=== PATIENT | female | born 1975 | race Caucasian/White ===

== ENCOUNTER → 2017-05-15 | Outpatient (CLI) | payer OTHER ==
[~2017-05-15] MED LIST: ALB0.5 INH; ARIP2TAB9 PO; ATEN-1 PO; AZIT1PAC21 PO; BUPXL150; BUSP10TA95 PO; CAL1TABL14 PO; CALC500T6 PO; CIT20 PO; CYCL10TA29 PO; DOC100 PO; DOXY-252 PO; DUONEB; ESOM20CA31 PO; FESO8PT GT; FLUT16SP20 NS; HYDR-385 PO; HYDRO25 PO; IBU200 PO; IBU800 PO; IBUP-1618 PO; IBUP600T22 PO; KET10 PO; LEVA1.2527 IH; LISI-374 PO; LOR5/325 PO; METF-410 PO; METH-543 PO; NIT100 PO; ONDA4TAB PO; ONDA4TAB97 PO; OXYC-865 PO; OXYC5TAB38 PO; PANT40TA65 PO; PAR20 PO; PER PO; PRED-1 PO; PRED20TA6 PO; SIMV-42 PO; SOLI10TA8 PO; SPI25 PO; SPIR25TA78 PO; TOP25 PO; TOPI-120 PO; TRAZ-133 PO; TRAZ150T8 PO; [UNRECOGNIZED DRUG - CODE] PO
--- NOTE | 2017-05-15 18:10 | RADIOLOGY IMAGING REPORT ---
FACILITY: [facility] PATIENT NAME: Pushpa Hahn : 1975 MR: [id number] V: [id number] EXAM DATE: ORDERING PHYSICIAN: ARYA HOLLAND TECHNOLOGIST: Location: [facility] - [place] Patient: Pushpa Hahn : 1975 Visit/Account:[id number] Date of Sevice: 05/15/2017 KNEE LEFT W/O CONTRAST COMPARISON: None. HISTORY: Left knee patellofemoral joint DJD, CT scan needed for upcoming patellofemoral joint replac ement. TECHNIQUE: Noncontrast axial CT of the left knee with coronal and sagittal reformats. One of the following dose optimization techniques was utilized in the performance of this exam: auto mated exposure control; adjustment of the mA and/or kV according to patient size; or use of iterative reconstruction technique. Specific details can be referenced in the facility's radiology CT exam op erational policy. CONTRAST: None. FINDINGS: BONES : No acute appearing fractures. Minimal degenerative irregularity of the cortex lining the pat ellar median ridge. Medial patellar facet the relatively convex morphology which is likely developmen kathe, and this causes mild medial patellofemoral joint space narrowing. No other significant arthropat hy. Medial and lateral compartments are unremarkable. No significant bone lesions. FLUID: Trace left knee effusion. No evidence of hemarthrosis or lipohemarthrosis. No appreciable sof t tissue fluid collections. SOFT TISSUES: Unremarkable. No focal muscle atrophy or appreciable muscle edema. OTHER: Negative. IMPRESSION: 1. Mild degenerative irregularity of the patellar median ridge and mild medial patellofemoral joint space narrowing. 2. Trace left knee effusion. Report Dictated By: Max Chavez at 05/15/2017 6:00 PM Report E-Signed By: Max Chavez at 05/15/2017 6:05 PM WSN:[email or web address]
== END ==
LOC: CT 02:39
PROVIDERS: ATTEND Orthopaedic Surgery
DX: M17.12 Unilateral primary osteoarthritis, left knee (principal); M25.462 Effusion, left knee

== ENCOUNTER → 2017-05-28 | Outpatient (REF) | payer OTHER ==
[2017-05-28 17:20] LABS: PLATELET COUNT, AUTOMATED 279 K/uL (150-450)
== END ==
LOC: ZZSENDIN 16:54
PROVIDERS: ATTEND Physician Assistant
DX: Z01.810 Encounter for preprocedural cardiovascular examination (principal); Z01.812 Encounter for preprocedural laboratory examination
CPT/HCPCS: 81001; 85025; 87088

== ENCOUNTER → 2017-06-18 | Outpatient (REF) | payer OTHER | LOC: ZZSENDIN 14:50 | PROVIDERS: ATTEND Physician Assistant | DX: Z01.818 Encounter for other preprocedural examination (principal) | CPT/HCPCS: 81001 ==

== ENCOUNTER 2017-07-08 02:44 | Day surgery (SDC) | payer OTHER ==
[~2017-07-08] VITALS: Ht 162.6 cm; Wt 128.8 kg
[~2017-07-08 02:44] MED LIST changes: -METF-410 PO; +METF-411 PO; +ROSU5TAB8 PO; +SULF-198 PO; +TRAM-420 PO
[2017-07-08 06:15] VITALS: BP 120/73
[2017-07-08] MEDS ORDERED: MIDAZOLAM 2 MG/2 ML VIAL IVP PRN (06:15)
[2017-07-08] MEDS ORDERED: PREGABALIN 150 MG CAPSULE PO ONE (06:15)
[2017-07-08] MEDS ORDERED: TRANEXAMIC AC 1000 MG/10ML SDV 1,000 MG in DEXTROSE 5% 50 ML BAG 50 ML IV ONE (06:15)
[2017-07-08] MEDS ORDERED: APREPITANT 40 MG CAP PO ONE (06:15)
[2017-07-08] MEDS ORDERED: ACETAMINOPHEN 500 MG TAB PO ONE (06:15)
[2017-07-08] MEDS ORDERED: NORMOSOL R SOLN(*) 1000 ML BAG 1,000 ML IV PRN (06:15)
[2017-07-08] MEDS ORDERED: CLINDAMYCIN(*) 900 MG/NS 50 ML 50 ML IVPB ONE (06:15)
[2017-07-08] MEDS ORDERED: LIDOCAINE/SOD BICARB 8.4% SYR ID ONE (06:15)
[2017-07-08] MEDS ORDERED: FAMOTIDINE 20 MG TAB PO ONE (06:15)
[2017-07-08] MEDS ORDERED: cloNIDine EPIDUR INJ 100MCG/ML 40 MCG, ROPIVACAINE 0.5% 20 ML VIAL 25 ML, EPINEPHrine H... INJ ONE (06:15)
[2017-07-08] MEDS ORDERED: CELECOXIB 200 MG CAP PO ONE (06:15)
[2017-07-08] MEDS ORDERED: MIDAZOLAM 2 MG/2 ML VIAL ONE (06:36)
[2017-07-08] MEDS ORDERED: fentaNYL CITR 100 MCG/2 ML AMP ONE (06:36)
[2017-07-08] MEDS ORDERED: DEXAMETHASONE SOD PHOS 10MG/ML ONE (06:38)
[2017-07-08] MEDS ORDERED: LIDOCAINE MPF 1% 5 ML VIAL ONE (06:38)
[2017-07-08] MEDS ORDERED: ONDANSETRON 4 MG/2 ML VIAL ONE (06:38)
[2017-07-08] MEDS ORDERED: ROPIVACAINE 0.2% 20 ML VIAL ONE (06:57)
[2017-07-08] MEDS ORDERED: ROCURONIUM BROM 10 MG/ML 10 ML ONE (07:10)
[2017-07-08] MEDS ORDERED: PHENYLEPHRINE 10 MG/1 ML VIAL ONE (07:54)
[2017-07-08] MEDS ORDERED: LACTATED RINGER 3000 ML BAG IR ONE (08:21)
[2017-07-08] MEDS ORDERED: OXY IR PO (09:29)
[2017-07-08] MEDS ORDERED: KET10 PO (09:30)
[2017-07-08] MEDS ORDERED: SUGAMMADEX SOD 200 MG/2 ML SDV ONE (09:31)
[2017-07-08] MEDS ORDERED: CLIN300C99 PO (09:33)
[2017-07-08] MEDS ORDERED: ACET-2146 PO (09:39)
[2017-07-08] MEDS ORDERED: KETOROLAC 30 MG/ML VIAL ONE (10:03)
[2017-07-08 10:45] VITALS: BP 110/68
--- NOTE | 2017-07-08 10:53 | RADIOLOGY IMAGING REPORT ---
[place] [facility] [place] NAME: Pushpa Hahn : 1975 MR: [id number] V: [id number] EXAM DATE: ORDERING PHYSICIAN: ARYA HOLLAND TECHNOLOGIST: Location: [facility] - [place] Patient: Pushpa Hahn : 1975 Visit/Account:[id number] Date of Sevice: 07/08/2017 EXAMINATION: Left knee radiographs 2 views HISTORY: Status post femoral patellar arthroplasty. COMPARISON: CT left knee from 05/15/2017. FINDINGS: AP and lateral views of the left knee are obtained. Bones: No periprosthetic fracture. Joint spaces: Negative. Hardware: There is a femoral patellar arthroplasty, new from previous exam. Hardware is well-positio pili. Alignment: Normal. Soft tissues: Negative. Effusion: Small amount of fluid and air in the joint following recent surgery. IMPRESSION: Status post left femoral patellar knee arthroplasty without evidence of hardware complication. Report Dictated By: Sara Velazquez MD at 07/08/2017 10:46 AM Report E-Signed By: Sara Velazquez MD at 07/08/2017 10:48 AM WSN:[email or web address]
[2017-07-08] MEDS ORDERED: oxyCODONE HCL 5 MG CAP PO ONE (11:00)
[2017-07-08 11:11] VITALS: BP 101/76
--- NOTE | 2017-07-08 14:04 | OPERATIVE REPORT 1 ---
EVENT DATE: July 08, 2017 SURGEON: Hakan Husain MD ANESTHESIOLOGIST: Neil Zendejas MD ANESTHESIA: Left adductor block followed by general. TEARER: DARBY AriasA, BSN, ALIGNMENT MECHANIC PREOPERATIVE DIAGNOSIS Left knee patellofemoral osteoarthritis, severe. POSTOPERATIVE DIAGNOSIS Left knee patellofemoral osteoarthritis, severe. PROCEDURE PERFORMED Right knee patellofemoral arthroplasty. IMPLANTS KineMatch patellofemoral replacement, custom with an 8 x 30 symmetric patella. We used one package of [employer]Joy cobalt blue antibiotic impregnated cement, and injected 50 mL of our standard Toradol, ropivacaine cocktail at the end of the procedure into the quadriceps mechanism. SPECIMENS None. COMPLICATIONS None. BLOOD LOSS Less than 100 mL. OPERATION Patient received appropriate preoperative antibiotic with clindamycin, was brought to the OR, where Dr. Zendejas performed left adductor block followed by general anesthesia. Left thigh tourniquet was placed, but was not used throughout the procedure. Left lower extremity was prepped and draped in the usual sterile fashion. Midline incision was made, followed by a medial parapatellar arthrotomy. We took care to maintain the meniscal attachments anteriorly. Patella was released of scar tissue, particularly in the lateral gutter, and we let this slide off to the lateral aspect with appropriate retractor. Knee was placed at approximately 45 degrees with a bump. We then utilized the custom guide, and utilizing the preoperative block, we positioned our guide and then marked this. Cartilage was removed with a combination of sharp dissection and curettes. We further refined this until we were satisfied. We then pinned our cutting guide into place and drilled our three peg holes. We then placed the prosthesis, and we noted that we were satisfied with this. This was then placed to back table. Knee was brought up in full extension, and we placed our guide to leave 14 mm of residual patella. We made our cut. We then placed our sizer, sized this to a 30, and placed our peg hole guide inferiorly medially, drilled our peg holes, and this accepted our trial. We then copiously irrigated by pulse lavage while we mixed one package of DonJoy cobalt blue antibiotic impregnated cement. Starting at the patella, we cemented this into place and removed the excess cement. With the knee held at about 45 degrees and the patella held in appropriate position, we then cemented the trochlear prostheses and held this in place. While this was occurring, we injected 50 mL of our standard ropivacaine/Toradol cocktail into the extensor mechanism distally. After 15 minutes, the cement had hardened. All excess cement had been removed. We assessed the patella, and it tracked well in the groove. Again we copiously irrigated, and at 30 degrees we closed the arthrotomy with #2 Vicryl in natbri-dr-vcsuw suture fashion followed by 2-0 Vicryl for subcutaneous tissues. We cleaned the wounds, placed the knee at 45 degrees, applied our ZipLine wound closure system, then we placed compressive dressing. Patient was then extubated, taken to recovery in stable condition. She will be weightbearing as tolerated and knee brace locked out in extension with a walker. She will have a Cryocup. Tylenol 1000 mg q.8 hours scheduled for the first 24-48 hours as prescribed. She has Toradol 10 mg one p.o. q.8 hours #10 for pain, OxyIR 5 mg one to two p.o. q.4 hours p.r.n. for pain and prophylactic clindamycin 300 mg q.8 hours #3. We will see her in two days in clinic to change the dressings. ALEXEI
== END 2017-07-08 10:45 | disposition home or self-care (01) ==
LOC: OR 02:44
PROVIDERS: ATTEND Orthopaedic Surgery
DX: M17.12 Unilateral primary osteoarthritis, left knee (principal); I10 Essential (primary) hypertension; Z79.899 Other long term (current) drug therapy
CPT/HCPCS: 27442; 36415; 73560; 85610; 86850; 86900; 86901; J1100; J1885; J2001; J2250; J2370; J2405; J2795; J3010; J3490; J8501; 97161

== ENCOUNTER → 2017-10-18 | Outpatient (REF) | payer OTHER ==
[~2017-10-18] MED LIST changes: +ACET-2146 PO; +CLIN300C99 PO; +OXY IR PO
== END ==
LOC: ZZSENDIN 16:45
PROVIDERS: ATTEND Physician Assistant
DX: R35.0 Frequency of micturition (principal); R82.99 Other abnormal findings in urine
CPT/HCPCS: 87088

== ENCOUNTER → 2017-12-10 | Outpatient (CLI) | payer OTHER ==
[~2017-12-10] MED LIST changes: -METF-411 PO; +METF-450 PO
--- NOTE | 2017-12-10 16:30 | RADIOLOGY IMAGING REPORT ---
FACILITY: [facility] PATIENT NAME: Pushpa Hahn : 1975 MR: [id number] V: [id number] EXAM DATE: ORDERING PHYSICIAN: LEVAR MORA TECHNOLOGIST: Location: [facility] - [place] Patient: Pushpa Hahn : 1975 Visit/Account:[id number] Date of Sevice: 12/10/2017 KIDNEYS EXAMINATION: Renal ultrasound. History: History of recurrent UTIs COMPARISON STUDIES: FINDINGS: Kidneys: Right kidney- 10.5 x 4.8 x 5.9 cm Left kidney- 11.5 x 6 x 5.1 cm Uniform and symmetric blood flow in each kidney by Doppler ultrasound. Hydronephrosis: none Resistive index on the right 0.57 on the left 0.60 Bladder: Urinary bladder prevoid volume 173 mL and postvoid residual 40 mL. Bilateral ureteral jets are present Abdominal aorta and IVC: Aorta and IVC are patent by Doppler ultrasound. IMPRESSION: Unremarkable renal ultrasound Report Dictated By: Loida Mireles MD at 12/10/2017 4:16 PM Report E-Signed By: Loida Mireles MD at 12/10/2017 4:26 PM WSN:[email or web address]
== END ==
LOC: US 00:09
PROVIDERS: ATTEND Physician Assistant
DX: Z87.440 Personal history of urinary (tract) infections (principal)
CPT/HCPCS: 76705

== ENCOUNTER 2017-12-30 07:41 | Emergency (ER) | payer OTHER ==
[2017-12-30] MEDS ORDERED: METF-450 PO (08:01)
[2017-12-30] MEDS ORDERED: BUPR-472 PO (08:01)
[2017-12-30] MEDS ORDERED: RANI-366 PO (08:01)
--- NOTE | 2017-12-30 08:25 | ER Report ---
History and Physical Time Seen By MD: 08:25 Hx. of Stated Complaint: Pt. having RLQ pain. Seen by PCP and all bloodwork came back normal. Takes Macrobid daily for chronic UTI. Pain 7/10 in RLQ. Afebrile. Nausea present and constipated. HPI/ROS Abdominal pain for 3-4 days. Takes Macrobid chronically for UTI prevention. Pain is not focal, though it is more right-sided than left. The pain waxes and wanes. She is status post hysterectomy, and still has her left ovary. No fever chills. No dysuria. Vaginal discharge. Remainder of the 14 system rev: Yes Allergies: Coded Allergies: Penicillins (Verified Allergy, Severe, HIVES, BREATHING PROBLEMS, 12/30/17) Home Meds Active Scripts Dicyclomine Hcl (DICYCLOMINE HCL) 20 Mg Tablet, 20 MG PO QID for 7 Days, #30 Prov:BAY FONTENOT MD 12/30/17 Reported Medications Ranitidine Hcl (ZANTAC) 150 Mg Tablet, 150 MG PO BID, TAB 12/30/17 Bupropion Hcl (WELLBUTRIN XL) 150 Mg Tab.er.24h, 150 MG PO QDAY, TAB 12/30/17 Metformin Hcl (METFORMIN HCL) 500 Mg Tablet, 1 TAB PO QDAY, TAB 12/30/17 Acetaminophen 500 Mg Tab (ACETAMINOPHEN EXTRA STRENGTH) 500 Mg Tablet, 1000 MG PO Q8H, TAB 07/08/17 Rosuvastatin Calcium (CRESTOR) 5 Mg Tablet, 5 MG PO QDAY 07/01/17 Buspirone Hcl (BUSPIRONE HCL) 10 Mg Tablet, 10 MG PO TID, TAB 07/01/17 Trazodone Hcl (TRAZODONE HCL) 150 Mg Tablet, 150 MG PO QHS 12/29/13 Citalopram Hydrobromide (Celexa) 20 Mg Tab, 40 MG PO QDAY, 0 Refills 10/09/10 Lisinopril (Lisinopril) 40 Mg Tablet, 40 MG PO QDAY, 0 Refills 10/09/10 Reviewed Nurses Notes: Yes Old Medical Records Reviewed: Yes Hx Smoking: No Smoking Status: Never Smoker Exposure to Second Hand Smoke?: No Hx Substance Use Disorder: No Hx Alcohol Use: No Constitutional Physical Exam General Appearance: The patient is alert, has no immediate need for airway protection and no current signs of toxicity. Eyes: Pupils equal and round no injection. Respiratory: Chest is non tender, lungs are clear to auscultation. Cardiac: regular rate and rhythm Gastrointestinal: Abdomen is soft with mild RLQ TTP, no masses, bowel sounds normal. Neck: Neck is supple and non tender. Extremities have full range of motion and are non tender. Skin: No rashes or lesions. DIFFERENTIAL DIAGNOSIS: After history and physical exam differential diagnosis was considered for abdominal pain including but not limited to appendicitis, cholecystitis, gastritis and urinary tract infection. Medical Decision Making Data Points Laboratory Hematology Test 12/30/17 07:48 12/30/17 08:12 Urine Color Yellow Urine Clarity Clear Urine pH 5.0 pH (4.8-9.5) Urine Specific Tensed 1.013 Urine Protein Negative mg/dL (NEGATIVE) Urine Glucose (UA) Negative mg/dL (NEGATIVE) Urine Ketones Negative mg/dL (NEGATIVE) Urine Blood Negative (NEGATIVE) Urine Nitrite Negative (NEGATIVE) Urine Bilirubin Negative (NEGATIVE) Urine Urobilinogen Negative mg/dL (0.2-1.9) Urine Leukocyte Esterase Negative (NEGATIVE) Urine RBC <1 /HPF (0-2/HPF) Urine WBC <1 /HPF (0-5/HPF) Urine Squamous Epithelial Cells Many /LPF (</=FEW) Urine Bacteria Few /HPF (NONE-FEW) Urine Mucus None /HPF (NONE-FEW) Red Blood Count 5.19 M/uL (4.17-5.56) Mean Corpuscular Volume 89.3 fL (80.0-96.0) Mean Corpuscular Hemoglobin 29.8 pg (26.0-33.0) Mean Corpuscular Hemoglobin Concent 33.4 g/dL (32.0-36.0) Red Cell Distribution Width 13.7 % (11.5-14.5) Mean Platelet Volume 8.2 fL (7.2-11.1) Neutrophils (%) (Auto) 61.5 % (39.4-72.5) Lymphocytes (%) (Auto) 27.1 % (17.6-49.6) Monocytes (%) (Auto) 7.5 % (4.1-12.4) Eosinophils (%) (Auto) 3.4 % (0.4-6.7) Basophils (%) (Auto) 0.5 % (0.3-1.4) Nucleated RBC Relative Count (auto) 0.1 /100WBC Neutrophils # (Auto) 4.2 K/uL (2.0-7.4) Lymphocytes # (Auto) 1.9 K/uL (1.3-3.6) Monocytes # (Auto) 0.5 K/uL (0.3-1.0) Eosinophils # (Auto) 0.2 K/uL (0.0-0.5) Basophils # (Auto) 0.0 K/uL (0.0-0.1) Nucleated RBC Absolute Count (auto) 0.01 K/uL Sodium Level 140 mmol/L (137-145) Potassium Level 3.9 mmol/L (3.5-5.0) Chloride Level 109 mmol/L (98-107) Carbon Dioxide Level 23 mmol/L (22-31) Blood Urea Nitrogen 11 mg/dl (7-18) Creatinine 0.80 mg/dl (0.52-1.04) Glomerular Filtration Rate Calc > 60.0 Random Glucose 149 mg/dl (75-110) Calcium Level 9.2 mg/dl (8.4-10.2) Total Bilirubin 0.7 mg/dl (0.2-1.3) Aspartate Amino Transf (AST/SGOT) 21 U/L (0-35) Alanine Aminotransferase (ALT/SGPT) 28 U/L (0-56) Alkaline Phosphatase 103 U/L (0-126) Total Protein 7.2 g/dl (6.3-8.2) Albumin 3.8 g/dl (3.5-5.0) Chemistry Test 12/30/17 07:48 12/30/17 08:12 Urine Color Yellow Urine Clarity Clear Urine pH 5.0 pH (4.8-9.5) Urine Specific Tensed 1.013 Urine Protein Negative mg/dL (NEGATIVE) Urine Glucose (UA) Negative mg/dL (NEGATIVE) Urine Ketones Negative mg/dL (NEGATIVE) Urine Blood Negative (NEGATIVE) Urine Nitrite Negative (NEGATIVE) Urine Bilirubin Negative (NEGATIVE) Urine Urobilinogen Negative mg/dL (0.2-1.9) Urine Leukocyte Esterase Negative (NEGATIVE) Urine RBC <1 /HPF (0-2/HPF) Urine WBC <1 /HPF (0-5/HPF) Urine Squamous Epithelial Cells Many /LPF (</=FEW) Urine Bacteria Few /HPF (NONE-FEW) Urine Mucus None /HPF (NONE-FEW) White Blood Count 6.9 k/uL (4.5-11.0) Red Blood Count 5.19 M/uL (4.17-5.56) Hemoglobin 15.5 g/dL (12.0-16.0) Hematocrit 46.3 % (34.0-47.0) Mean Corpuscular Volume 89.3 fL (80.0-96.0) Mean Corpuscular Hemoglobin 29.8 pg (26.0-33.0) Mean Corpuscular Hemoglobin Concent 33.4 g/dL (32.0-36.0) Red Cell Distribution Width 13.7 % (11.5-14.5) Platelet Count 266 K/uL (150-450) Mean Platelet Volume 8.2 fL (7.2-11.1) Neutrophils (%) (Auto) 61.5 % (39.4-72.5) Lymphocytes (%) (Auto) 27.1 % (17.6-49.6) Monocytes (%) (Auto) 7.5 % (4.1-12.4) Eosinophils (%) (Auto) 3.4 % (0.4-6.7) Basophils (%) (Auto) 0.5 % (0.3-1.4) Nucleated RBC Relative Count (auto) 0.1 /100WBC Neutrophils # (Auto) 4.2 K/uL (2.0-7.4) Lymphocytes # (Auto) 1.9 K/uL (1.3-3.6) Monocytes # (Auto) 0.5 K/uL (0.3-1.0) Eosinophils # (Auto) 0.2 K/uL (0.0-0.5) Basophils # (Auto) 0.0 K/uL (0.0-0.1) Nucleated RBC Absolute Count (auto) 0.01 K/uL Glomerular Filtration Rate Calc > 60.0 Calcium Level 9.2 mg/dl (8.4-10.2) Total Bilirubin 0.7 mg/dl (0.2-1.3) Aspartate Amino Transf (AST/SGOT) 21 U/L (0-35) Alanine Aminotransferase (ALT/SGPT) 28 U/L (0-56) Alkaline Phosphatase 103 U/L (0-126) Total Protein 7.2 g/dl (6.3-8.2) Albumin 3.8 g/dl (3.5-5.0) Urinalysis Test 12/30/17 07:48 Urine Color Yellow Urine Clarity Clear Urine pH 5.0 pH (4.8-9.5) Urine Specific Tensed 1.013 Urine Protein Negative mg/dL (NEGATIVE) Urine Glucose (UA) Negative mg/dL (NEGATIVE) Urine Ketones Negative mg/dL (NEGATIVE) Urine Blood Negative (NEGATIVE) Urine Nitrite Negative (NEGATIVE) Urine Bilirubin Negative (NEGATIVE) Urine Urobilinogen Negative mg/dL (0.2-1.9) Urine Leukocyte Esterase Negative (NEGATIVE) Urine RBC <1 /HPF (0-2/HPF) Urine WBC <1 /HPF (0-5/HPF) Urine Squamous Epithelial Cells Many /LPF (</=FEW) Urine Bacteria Few /HPF (NONE-FEW) Urine Mucus None /HPF (NONE-FEW) ED Course/Re-evaluation ED Course Pain improved. No evidence of appendicitis. Consider ovarian torsion, but improved on right side has been removed. No vaginal discharge or vaginal bleeding. No further workup needed at this time. She will follow-up with her primary care physician. Decision to Disposition Date: Dec 30, 2017 Decision to Disposition Time: 13:30 Depart Departure Latest Vital Signs Impression: Primary Impression: Abdominal pain Condition: Improved Disposition: HOME OR SELF-CARE Referrals: LEVAR MORA PA-C (PCP) New Scripts Dicyclomine Hcl (DICYCLOMINE HCL) 20 Mg Tablet 20 MG PO QID for 7 Days, #30 Prov: BAY FONTENOT MD 12/30/17 Patient Instructions: Abdominal Pain (ED) Problem Qualifiers Primary Impression: Abdominal pain Abdominal location: right lower quadrant Qualified Codes: R10.31 - Right lower quadrant pain BAY FONTENOT MD Dec 30, 2017 08:25
[2017-12-30] MEDS ORDERED: ONDANSETRON 4 MG/2 ML VIAL IVP ONE (08:40)
[2017-12-30] MEDS ORDERED: NS(*) 0.9% 1000 ML BAG 1,000 ML IV ONE (08:40)
[2017-12-30 08:52] LABS: PLATELET COUNT, AUTOMATED 266 K/uL (150-450)
[2017-12-30] MEDS ORDERED: IOPAMIDOL 76% 75 ML INFUS BTL 75 ML ONE (08:57)
--- NOTE | 2017-12-30 09:52 | RADIOLOGY IMAGING REPORT ---
FACILITY: [facility] - [place] PATIENT NAME: Pushpa Hahn : 1975 MR: [id number] V: [id number] EXAM DATE: ORDERING PHYSICIAN: BAY FONTENOT TECHNOLOGIST: Location: [facility] Patient: Pushpa Hahn : 1975 Visit/Account:[id number] Date of Sevice: 12/30/2017 EXAMINATION: Abdomen and pelvis CT with contrast HISTORY: Right lower quadrant pain TECHNIQUE: CT was performed through the abdomen and pelvis following injection of iodinated intrave nous contrast. Sagittal and coronal MPR reformatted images were generated. 75 mL isovue 370 injecte d. One of the following dose optimization techniques was utilized in the performance of this exam: autom ated exposure control; adjustment of the mA and/or kV according to patient size; or use of iterative reconstruction technique. Specific details can be referenced in the facility's radiology CT exam ope rational policy. COMPARISON: MRCP 01/13/2014, chest CT May 09, 2016 FINDINGS: Lower chest: Left lower lobe 4 mm likely benign/postinflammatory pulmonary nodule is unchanged compar ing coronal reformations, coronal images 82 and 83. Spleen: Normal. Adrenal glands: Normal. Pancreas: Normal. Kidneys: Normal. Gallbladder: Surgically absent. Liver: Unchanged mild hepatic steatosis. Vessels: Normal. Lymph node assessment: A few likely reactive borderline enlarged portal region lymph nodes have incre ased in size. Bowel including small bowel, colon and appendix: Normal stomach, normal small bowel, and normal appen jose. A few colonic diverticuli without diverticulitis. Otherwise unremarkable colon. Peritoneum / retroperitoneum / mesentery: Normal. Pelvic structures: Normal bladder, absent uterus and normal rectum. No pelvic fluid or adenopathy . Body wall: Normal. Musculoskeletal: No fracture or osseous destruction. IMPRESSION: 1. No acute finding. 2. Normal appendix. 3. Unchanged hepatic steatosis. 4. A few colonic diverticula without diverticulitis. 5. Surgically absent gallbladder and uterus. Report Dictated By: Everett Vela MD at 12/30/2017 9:37 AM Report E-Signed By: Everett Vela MD at 12/30/2017 9:49 AM WSN:[email or web address]
[2017-12-30] MEDS ORDERED: KETOROLAC 30 MG/ML VIAL IVP ONE (10:00)
[2017-12-30 13:30] VITALS: BP 127/85
[2017-12-30] MEDS ORDERED: DICY20TA70 PO (13:33)
== END 2017-12-30 14:01 | disposition home or self-care (01) ==
LOC: ER 08:30
DX: R10.31 Right lower quadrant pain (principal)
CPT/HCPCS: 74177; 81001; 85025; 96361; 96374; 96375; 99284; J1885; J2405; J7030; Q9967; 82040; 82247; 82310; 82374; 82435; 82565; 82947; 84075; 84132; 84155; 84295; 84450; 84460; 84520

== ENCOUNTER 2018-05-14 20:09 | Emergency (ER) | payer OTHER ==
[~2018-05-14 20:09] MED LIST changes: +BUPR-472 PO; +DICY20TA70 PO; +RANI-366 PO
--- NOTE | 2018-05-14 20:11 | ER Report ---
History and Physical Time Seen By MD: 20:10 HPI/ROS CHIEF COMPLAINT: Right hip pain HISTORY OF PRESENT ILLNESS: 42-year-old female with extensive past medical history she has an implanted bladder stimulator from several months ago. She has chronic UTIs and bladder problems. On Macrobid chronically. She now over the last 2 days developed severe right hip and groin pain. He is unable to move her leg without severe pain. She feels febrile, but her temperature returns at 98.5. She notes no nausea or vomiting. She notes no diarrhea or dysuria. Patient notes the pain wraps around her right posterior pelvic area where the implant was inserted. The incision appears intact without erythema, warmth or induration. REVIEW OF SYSTEMS: Respiratory: No cough, no dyspnea. Cardiovascular: No chest pain, no palpitations. Gastrointestinal: No vomiting, no abdominal pain. Musculoskeletal: As above Allergies: Coded Allergies: Penicillins (Verified Allergy, Severe, HIVES, BREATHING PROBLEMS, 05/14/18) Home Meds Active Scripts Prednisone (PREDNISONE) 20 Mg Tablet, 20 MG PO QDAY for reduce inflammation, #7 Prov:PUMA MURILLO DO 05/14/18 Hydrocodone Bit/Acetaminophen (HYDROCODON-ACETAMINOPHEN 5-325) 1 Each Tablet, 1 EACH PO Q4-6H PRN for PAIN, #12 TAKE ONE TABLET BY MOUTH EVERY 4-6 HOURS NEEDED FOR PAIN Prov:PUMA MURILLO DO 05/14/18 Reported Medications Ranitidine Hcl (ZANTAC) 150 Mg Tablet, 150 MG PO BID, TAB 12/30/17 Bupropion Hcl (WELLBUTRIN XL) 150 Mg Tab.er.24h, 150 MG PO QDAY, TAB 12/30/17 Acetaminophen 500 Mg Tab (ACETAMINOPHEN EXTRA STRENGTH) 500 Mg Tablet, 1000 MG PO Q8H, TAB 07/08/17 Rosuvastatin Calcium (CRESTOR) 5 Mg Tablet, 5 MG PO QDAY 07/01/17 Buspirone Hcl (BUSPIRONE HCL) 10 Mg Tablet, 10 MG PO TID, TAB 07/01/17 Trazodone Hcl (TRAZODONE HCL) 150 Mg Tablet, 150 MG PO QHS 12/29/13 Citalopram Hydrobromide (Celexa) 20 Mg Tab, 40 MG PO QDAY, 0 Refills 10/09/10 Lisinopril (Lisinopril) 40 Mg Tablet, 40 MG PO QDAY, 0 Refills 10/09/10 Discontinued Reported Medications Metformin Hcl (METFORMIN HCL) 500 Mg Tablet, 1 TAB PO QDAY, TAB 12/30/17 Discontinued Scripts Dicyclomine Hcl (DICYCLOMINE HCL) 20 Mg Tablet, 20 MG PO QID for 7 Days, #30 Prov:BAY FONTENOT MD 12/30/17 Past Medical/Surgical History Past medical history: Wears contact lenses, stress-induced headaches, hypertension, diet controlled hypercholesterolemia, hypertension, environmental and exercise-induced asthma, dysmenorrhea, metromenorrhagia, stress incontinence resistant UTI. Past surgical history tubal ligation 2004, total hysterectomy 2010 right wrist surgery Hx Smoking: No Smoking Status: Never Smoker Exposure to Second Hand Smoke?: No Hx Substance Use Disorder: No Hx Alcohol Use: No Constitutional Vital Sign - Last 24 Hours 05/14/18 05/14/18 05/14/18 05/14/18 20:12 20:14 21:09 21:36 Temp 98.5 Pulse 107 92 Resp 17 B/P (MAP) 152/80 152/80 (104) 115/67 (83) Pulse Ox 90 92 O2 Delivery Room Air 05/14/18 05/14/18 05/14/18 21:44 22:00 22:14 Pulse 86 91 B/P (MAP) 116/51 (72) Pulse Ox 93 92 Intake and Output 05/14/18 05/14/18 05/15/18 15:00 23:00 07:00 Intake Total 1000 ml Balance 1000 ml Physical Exam General Appearance: The patient is alert, has no immediate need for airway protection and no current signs of toxicity. Vital signs stable, afebrile, pulse ox normal, moderate distress HEENT: Pupils equal and round no injection. TMs normal, oropharynx without redness or exudate Respiratory: Chest is non tender, lungs are clear to auscultation. Cardiac: regular rate and rhythm Gastrointestinal: Abdomen is soft and non tender, no masses, bowel sounds normal. Musculoskeletal: Neck: Neck is supple and non tender. Extremities have full range of motion and are non tender. Skin: No rashes or lesions. DIFFERENTIAL DIAGNOSIS: After history and physical exam differential diagnosis was considered for arthritis, septic joint, labral tear, groin pain,abdominal pain including but not limited to appendicitis, cholecystitis, gastritis and uri nary tract infection. Medical Decision Making Data Points Result Diagram: 05/14/18202905/14/182029 Laboratory Hematology Test 05/14/18 20:30 Red Blood Count 5.21 M/uL (4.17-5.56) Mean Corpuscular Volume 88.5 fL (80.0-96.0) Mean Corpuscular Hemoglobin 29.7 pg (26.0-33.0) Mean Corpuscular Hemoglobin Concent 33.6 g/dL (32.0-36.0) Red Cell Distribution Width 13.7 % (11.5-14.5) Mean Platelet Volume 8.6 fL (7.2-11.1) Neutrophils (%) (Auto) 71.6 % (39.4-72.5) Lymphocytes (%) (Auto) 19.7 % (17.6-49.6) Monocytes (%) (Auto) 6.6 % (4.1-12.4) Eosinophils (%) (Auto) 1.7 % (0.4-6.7) Basophils (%) (Auto) 0.4 % (0.3-1.4) Nucleated RBC Relative Count (auto) 0.0 /100WBC Neutrophils # (Auto) 8.6 K/uL (2.0-7.4) Lymphocytes # (Auto) 2.4 K/uL (1.3-3.6) Monocytes # (Auto) 0.8 K/uL (0.3-1.0) Eosinophils # (Auto) 0.2 K/uL (0.0-0.5) Basophils # (Auto) 0.1 K/uL (0.0-0.1) Nucleated RBC Absolute Count (auto) 0.01 K/uL Urine Color Yellow Urine Clarity Clear Urine pH 5.0 pH (4.8-9.5) Urine Specific [place] 1.016 Urine Protein Negative mg/dL (NEGATIVE) Urine Glucose (UA) Negative mg/dL (NEGATIVE) Urine Ketones Negative mg/dL (NEGATIVE) Urine Blood Negative (NEGATIVE) Urine Nitrite Negative (NEGATIVE) Urine Bilirubin Negative (NEGATIVE) Urine Urobilinogen Negative mg/dL (0.2-1.9) Urine Leukocyte Esterase Negative (NEGATIVE) Urine RBC <1 /HPF (0-2/HPF) Urine WBC 2 /HPF (0-5/HPF) Urine Squamous Epithelial Cells Many /LPF (</=FEW) Urine Bacteria Few /HPF (NONE-FEW) Urine Mucus None /HPF (NONE-FEW) Urine HCG, Qualitative Negative (NEGATIVE) Sodium Level 139 mmol/L (137-145) Potassium Level 3.9 mmol/L (3.5-5.0) Chloride Level 103 mmol/L (98-107) Carbon Dioxide Level 23 mmol/L (22-31) Blood Urea Nitrogen 11 mg/dl (7-18) Creatinine 0.90 mg/dl (0.52-1.04) Glomerular Filtration Rate Calc > 60.0 Random Glucose 183 mg/dl (75-110) Calcium Level 9.2 mg/dl (8.4-10.2) Total Bilirubin 0.6 mg/dl (0.2-1.3) Aspartate Amino Transf (AST/SGOT) 24 U/L (0-35) Alanine Aminotransferase (ALT/SGPT) 37 U/L (0-56) Alkaline Phosphatase 106 U/L (0-126) C-Reactive Protein 0.5 mg/dl (<1.0) Total Protein 7.4 g/dl (6.3-8.2) Albumin 4.2 g/dl (3.5-5.0) Amylase Level 72 U/L (0-110) Lipase 140 U/L (23-300) Chemistry Test 05/14/18 20:30 White Blood Count 12.0 k/uL (4.5-11.0) Red Blood Count 5.21 M/uL (4.17-5.56) Hemoglobin 15.5 g/dL (12.0-16.0) Hematocrit 46.1 % (34.0-47.0) Mean Corpuscular Volume 88.5 fL (80.0-96.0) Mean Corpuscular Hemoglobin 29.7 pg (26.0-33.0) Mean Corpuscular Hemoglobin Concent 33.6 g/dL (32.0-36.0) Red Cell Distribution Width 13.7 % (11.5-14.5) Platelet Count 315 K/uL (150-450) Mean Platelet Volume 8.6 fL (7.2-11.1) Neutrophils (%) (Auto) 71.6 % (39.4-72.5) Lymphocytes (%) (Auto) 19.7 % (17.6-49.6) Monocytes (%) (Auto) 6.6 % (4.1-12.4) Eosinophils (%) (Auto) 1.7 % (0.4-6.7) Basophils (%) (Auto) 0.4 % (0.3-1.4) Nucleated RBC Relative Count (auto) 0.0 /100WBC Neutrophils # (Auto) 8.6 K/uL (2.0-7.4) Lymphocytes # (Auto) 2.4 K/uL (1.3-3.6) Monocytes # (Auto) 0.8 K/uL (0.3-1.0) Eosinophils # (Auto) 0.2 K/uL (0.0-0.5) Basophils # (Auto) 0.1 K/uL (0.0-0.1) Nucleated RBC Absolute Count (auto) 0.01 K/uL Urine Color Yellow Urine Clarity Clear Urine pH 5.0 pH (4.8-9.5) Urine Specific [place] 1.016 Urine Protein Negative mg/dL (NEGATIVE) Urine Glucose (UA) Negative mg/dL (NEGATIVE) Urine Ketones Negative mg/dL (NEGATIVE) Urine Blood Negative (NEGATIVE) Urine Nitrite Negative (NEGATIVE) Urine Bilirubin Negative (NEGATIVE) Urine Urobilinogen Negative mg/dL (0.2-1.9) Urine Leukocyte Esterase Negative (NEGATIVE) Urine RBC <1 /HPF (0-2/HPF) Urine WBC 2 /HPF (0-5/HPF) Urine Squamous Epithelial Cells Many /LPF (</=FEW) Urine Bacteria Few /HPF (NONE-FEW) Urine Mucus None /HPF (NONE-FEW) Urine HCG, Qualitative Negative (NEGATIVE) Glomerular Filtration Rate Calc > 60.0 Calcium Level 9.2 mg/dl (8.4-10.2) Total Bilirubin 0.6 mg/dl (0.2-1.3) Aspartate Amino Transf (AST/SGOT) 24 U/L (0-35) Alanine Aminotransferase (ALT/SGPT) 37 U/L (0-56) Alkaline Phosphatase 106 U/L (0-126) C-Reactive Protein 0.5 mg/dl (<1.0) Total Protein 7.4 g/dl (6.3-8.2) Albumin 4.2 g/dl (3.5-5.0) Amylase Level 72 U/L (0-110) Lipase 140 U/L (23-300) Urinalysis Test 05/14/18 20:30 Urine Color Yellow Urine Clarity Clear Urine pH 5.0 pH (4.8-9.5) Urine Specific [place] 1.016 Urine Protein Negative mg/dL (NEGATIVE) Urine Glucose (UA) Negative mg/dL (NEGATIVE) Urine Ketones Negative mg/dL (NEGATIVE) Urine Blood Negative (NEGATIVE) Urine Nitrite Negative (NEGATIVE) Urine Bilirubin Negative (NEGATIVE) Urine Urobilinogen Negative mg/dL (0.2-1.9) Urine Leukocyte Esterase Negative (NEGATIVE) Urine RBC <1 /HPF (0-2/HPF) Urine WBC 2 /HPF (0-5/HPF) Urine Squamous Epithelial Cells Many /LPF (</=FEW) Urine Bacteria Few /HPF (NONE-FEW) Urine Mucus None /HPF (NONE-FEW) Urine HCG, Qualitative Negative (NEGATIVE) EKG/Imaging Imaging Results: CT scan of the abdomen and pelvis with IV contrast was obtained. The results of the study are COMPUTED TOMOGRAPHY ABDOMEN AND PELVIS WITH INTRAVENOUS CONTRAST DATE OF EXAM: 05/14/2018 8:25 PM INDICATION: Severe right hip pain for 2 days, nerve stimulator implant. COMPARISON: CT abdomen and pelvis 12/30/2017. TECHNIQUE: Contrast enhanced abdomen and pelvis CT performed during the injection of 75 ml of Isovue 370. Sagittal and coronal reconstructions were performed. One of the following dose optimization techniques was utilized in t he performance of this exam: Automated exposure control; adjustment of the mA and/or kV according to the patient's size; or use of an iterative reconstruction technique. Specific details can be referenced in the facility's radiology CT exam operational policy. FINDINGS: Lung bases: Minimal atelectasis. Liver and hepatic vasculature: Liver is mildly enlarged. No suspicious lesion or acute abnormality. Gallbladder and bile ducts: Extrahepatic bile duct prominence likely related to cholecystectomy. Spleen: Normal. Tiny splenule. Pancreas: Normal. Adrenals: Normal. Kidneys, ureters and bladder: Normal. Retroperitoneum and aorta: Nonaneurysmal aorta. No adenopathy. GI tract, mesentery and peritoneum: Nonacute. Normal appendix. Mild colonic diverticulosis. Uterus and adnexa: Hysterectomy. Bones and soft tissues: Nonacute. Right sacral nerve stimulator in place entering the pelvic cavity through the S3 foramen. Stimulator pack is in the right lower back. No evidence of acute abnormality. IMPRESSION: 1. No apparent acute abnormality. 2. Right sacral nerve stimulator in place, entering through the S3 foramen. 3. Mild colonic diverticulosis. 4. Hysterectomy and cholecystectomy. The study was read by the radiologist. I viewed the images myself on the PACS system. Results: CT scan of the right hip was obtained. The results of the study are CT LOWER EXT W/O RT INDICATION: Severe right hip pain for 2 days. EXAM DATE: 05/14/2018 8:25 PM COMPARISON: Same-day CT abdomen and pelvis. TECHNIQUE: Axial noncontrast CT images of the right hip were obtained. Sagittal and coronal reconstructions were performed. One of the following dose optimization techniques was utilized in the performance of this exam: Automated exposure control; adjustment of the mA and/or kV according to the patient's size; or use of an iterative reconstruction technique. Specific details can be referenced in the facility's radiology CT exam operational policy. FINDINGS: Mineralization is normal. Right hip joint space is well-maintained. No acute fracture or dislocation. No apparent joint effusion or other acute soft tissue abnormality. Mild osteoarthrosis of the bilateral SI joints end the pubic symphysis. Please see same-day CT abdomen and pelvis regarding additional findings. IMPRESSION: 1. Grossly normal appearance of the right hip. 2. Mild arthrosis of the SI joints and pubic symphysis. 3. Please see same-day CT abdomen and pelvis regarding additional findings. The study was read by the radiologist. I viewed the images myself on the PACS system. ED Course/Re-evaluation Clinical Indication for ER IV: Hydration, IV Access ED Course Patient was admitted to an examination room. H&P was done. The differential diagnoses was considered. Patient with abdominal pain, back pain and, right hip pain. She is unable to move her leg without severe pain. There is significant pain with tenderness over the right hip joint. She is afebrile. CT scans of the abdomen and pelvis and right hip were performed. Patient was treated for pain. Her diagnostic studies show mild elevation of white blood cell count. Her CRP is negative. Lactate is normal. She is discharged home on low-dose prednisone 20 mg per day, ibuprofen and Lortab for pain relief. She is advised to follow-up with her primary care if unimproved in 3-5 days. Decision to Disposition Date: May 14, 2018 Decision to Disposition Time: 22:14 Depart Departure Latest Vital Signs Vital Signs Date Time Temp Pulse Resp B/P (MAP) Pulse Ox O2 Delivery O2 Flow Rate FiO2 05/14/18 22:14 91 92 05/14/18 22:00 116/51 (72) 05/14/18 20:12 98.5 17 Room Air Impression: Primary Impression: Abdominal pain Additional Impression: Right hip pain Condition: Improved Disposition: HOME OR SELF-CARE Referrals: LEVAR MORA PA-C (PCP) New Scripts Prednisone (PREDNISONE) 20 Mg Tablet 20 MG PO QDAY for reduce inflammation, #7 Prov: PUMA MURILLO DO 05/14/18 Hydrocodone Bit/Acetaminophen (HYDROCODON-ACETAMINOPHEN 5-325) 1 Each Tablet 1 EACH PO Q4-6H PRN for PAIN, #12 TAKE ONE TABLET BY MOUTH EVERY 4-6 HOURS NEEDED FOR PAIN Prov: PUMA MURILLO DO 05/14/18 Patient Instructions: Hip Pain (ED) Additional Instructions: Take ibuprofen 200 mg 3 tablets 3 times a day with food Follow-up with primary care if unimproved in 3-5 days Problem Qualifiers Primary Impression: Abdominal pain Abdominal location: generalized Qualified Codes: R10.84 - Generalized abdominal pain PUMA MURILLO DO May 14, 2018 20:11
[2018-05-14] MEDS ORDERED: fentaNYL CITR 100 MCG/2 ML AMP IVP ONE (20:25)
[2018-05-14] MEDS ORDERED: ONDANSETRON 4 MG/2 ML VIAL IVP ONE (20:25)
[2018-05-14] MEDS ORDERED: NS(*) 0.9% 1000 ML BAG 1,000 ML IV ONE (20:25)
[2018-05-14] MEDS ORDERED: IOPAMIDOL 76% 150 ML INFUS BTL 150 ML ONE (20:42)
[2018-05-14 21:15] LABS: PLATELET COUNT, AUTOMATED 315 K/uL (150-450)
[2018-05-14] MEDS ORDERED: HYDROMORPHONE HCL 1 MG/ML SYRINGE IVP ONE (21:45)
[2018-05-14 22:00] VITALS: BP 116/51
--- NOTE | 2018-05-14 22:01 | RADIOLOGY IMAGING REPORT ---
FACILITY: [facility] PATIENT NAME: Pushpa Hahn : 1975 MR: [id number] V: [id number] EXAM DATE: ORDERING PHYSICIAN: PUMA MURILLO TECHNOLOGIST: Location: [facility] [place] Patient: Pushpa Hahn : 1975 Visit/Account:[id number] Date of Sevice: 05/14/2018 COMPUTED TOMOGRAPHY ABDOMEN AND PELVIS WITH INTRAVENOUS CONTRAST DATE OF EXAM: 05/14/2018 8:25 PM INDICATION: Severe right hip pain for 2 days, nerve stimulator implant. COMPARISON: CT abdomen and pelvis 12/30/2017. TECHNIQUE: Contrast enhanced abdomen and pelvis CT performed during the injection of 75 ml of Isovue 370. Sagittal and coronal reconstructions were performed. One of the following dose optimization te chniques was utilized in the performance of this exam: Automated exposure control; adjustment of the mA and/or kV according to the patient's size; or use of an iterative reconstruction technique. Spec [facility] details can be referenced in the facility's radiology CT exam operational policy. FINDINGS: Lung bases: Minimal atelectasis. Liver and hepatic vasculature: Liver is mildly enlarged. No suspicious lesion or acute abnormality. Gallbladder and bile ducts: Extrahepatic bile duct prominence likely related to cholecystectomy. Spleen: Normal. Tiny splenule. Pancreas: Normal. Adrenals: Normal. Kidneys, ureters and bladder: Normal. Retroperitoneum and aorta: Nonaneurysmal aorta. No adenopathy. GI tract, mesentery and peritoneum: Nonacute. Normal appendix. Mild colonic diverticulosis. Uterus and adnexa: Hysterectomy. Bones and soft tissues: Nonacute. Right sacral nerve stimulator in place entering the pelvic cavity through the S3 foramen. Stimulator pack is in the right lower back. No evidence of acute abnormali ty. IMPRESSION: 1. No apparent acute abnormality. 2. Right sacral nerve stimulator in place, entering through the S3 foramen. 3. Mild colonic diverticulosis. 4. Hysterectomy and cholecystectomy. Report Dictated By: Ney Ruano MD at 05/14/2018 9:50 PM Report E-Signed By: Ney Ruano MD at 05/14/2018 9:57 PM WSN:[id number]
--- NOTE | 2018-05-14 22:03 | RADIOLOGY IMAGING REPORT ---
FACILITY: [facility] PATIENT NAME: Pushpa Hahn : 1975 MR: [id number] V: [id number] EXAM DATE: ORDERING PHYSICIAN: PUMA MURILLO TECHNOLOGIST: Location: [facility] Patient: Pushpa Hahn : 1975 Visit/Account:[id number] Date of Sevice: 05/14/2018 CT LOWER EXT W/O RT INDICATION: Severe right hip pain for 2 days. EXAM DATE: 05/14/2018 8:25 PM COMPARISON: Same-day CT abdomen and pelvis. TECHNIQUE: Axial noncontrast CT images of the right hip were obtained. Sagittal and coronal reconstr uctions were performed. One of the following dose optimization techniques was utilized in the perfor leonarda of this exam: Automated exposure control; adjustment of the mA and/or kV according to the patie nt's size; or use of an iterative reconstruction technique. Specific details can be referenced in [facility]'s radiology CT exam operational policy. FINDINGS: Mineralization is normal. Right hip joint space is well-maintained. No acute fracture or dislocatio n. No apparent joint effusion or other acute soft tissue abnormality. Mild osteoarthrosis of the bi lateral SI joints end the pubic symphysis. Please see same-day CT abdomen and pelvis regarding addit ional findings. IMPRESSION: 1. Grossly normal appearance of the right hip. 2. Mild arthrosis of the SI joints and pubic symphysis. 3. Please see same-day CT abdomen and pelvis regarding additional findings. Report Dictated By: Ney Ruano MD at 05/14/2018 9:57 PM Report E-Signed By: Ney Ruano MD at 05/14/2018 10:00 PM WSN:[id number]
[2018-05-14] MEDS ORDERED: LOR5/325 PO (22:16)
[2018-05-14] MEDS ORDERED: PRED20TA6 PO (22:17)
[2018-05-14] MEDS ORDERED: predniSONE 20 MG TAB PO ONE (22:20)
[2018-05-14] MEDS ORDERED: KETOROLAC 30 MG/ML VIAL IVP ONE (22:20)
[2018-05-14] MEDS ORDERED: ACET/HYDROC 5/325MG TH ER ONLY 2 TAB/BOTTLE PO ONE (22:20)
== END 2018-05-14 22:36 | disposition home or self-care (01) ==
LOC: ER 20:29
DX: R10.84 Generalized abdominal pain (principal); M25.551 Pain in right hip
CPT/HCPCS: 73700; 74177; 81001; 81025; 82150; 83690; 85025; 86140; 87040; 96374; 96375; 99284; J1170; J1885; J2405; J3010; J7030; J7512; Q9967; 82040; 82247; 82310; 82374; 82435; 82565; 82947; 84075; 84132; 84155; 84295; 84450; 84460; 84520

== ENCOUNTER → 2018-08-07 | Emergency (ER) | payer OTHER ==
[~2018-08-07] MED LIST changes: -RANI-366 PO; +RANI-54 PO
== END ==
LOC: ER 21:45
DX: Z02.9 Encounter for administrative examinations, unspecified (principal)

== ENCOUNTER → 2018-08-22 | Outpatient (CLI) | payer OTHER ==
--- NOTE | 2018-08-22 14:11 | RADIOLOGY IMAGING REPORT ---
FACILITY: [facility] PATIENT NAME: Pushpa Hahn : 1975 MR: [id number] V: [id number] EXAM DATE: ORDERING PHYSICIAN: ARYA HOLLAND TECHNOLOGIST: Location: [facility] [place] Patient: Pushpa Hahn : 1975 Visit/Account:[id number] Date of Sevice: 08/22/2018 CT of the right knee INDICATION: Right knee pain. Bone abnormality COMPARISON: None available Technique: Axial CT images were obtained through the right knee. Reformatted coronal and sagittal im ages were reviewed. One of the following dose optimization techniques was utilized in the performance of this exam: auto mated exposure control; adjustment of the mA and/or kV according to the patient's size; or use of an iterative reconstruction technique. Specific details can be referenced in the facility's radiology C T exam operational policy. FINDINGS: There is a benign chondroid lesion suggested within the distal central femur measuring approximately 3.1 x 2.0 x 2.1 cm in longitudinal, transverse, and AP dimensions respectively. There are no aggressi ve features identified. There is no acute or aggressive osseous normality. The extensor mechanism is intact. Areas of subchondral sclerosis involving the posterior margin the patella likely degenerative in natu re The PCL and ACL appear grossly intact on these images. The MCL also appears intact as well as the lateral ligamentous structures. There is a small suprapatellar joint effusion noted. . IMPRESSION: 1. Chronic/degenerative changes as described above. 2. Benign chondroid lesion distal central femur. Report Dictated By: Christian Ibarra MD at 08/22/2018 2:00 PM Report E-Signed By: Christian Ibarra MD at 08/22/2018 2:04 PM WSN:[id number]
== END ==
LOC: CT 00:21 → LAB 10:31
PROVIDERS: ATTEND Orthopaedic Surgery
DX: M89.8X6 Other specified disorders of bone, lower leg (principal); M25.561 Pain in right knee
CPT/HCPCS: 36415; 73701; 82565; Q9967

== ENCOUNTER → 2018-09-29 | Outpatient (CLI) | payer OTHER ==
--- NOTE | 2018-09-29 16:24 | RADIOLOGY IMAGING REPORT ---
FACILITY: [facility] PATIENT NAME: Pushpa Hahn : 1975 MR: [id number] V: [id number] EXAM DATE: ORDERING PHYSICIAN: CHIDI WATSON TECHNOLOGIST: Location: [facility] Patient: Pushpa Hahn : 1975 Visit/Account:[id number] Date of Sevice: 09/29/2018 Examination: Nuclear medicine whole body bone scan Comparison: CT 08/22/2018. History: Right distal femur chondroid lesion. Procedure: Standard whole body bone scan with anterior and posterior planar imaging following the une ventful administration of 24.7 mCi technetium 99m HDP. Findings: Normal physiologic tracer activity throughout the axial and appendicular skeleton and the s oft tissues. Right distal femur focal increased tracer activity corresponding to the site of the chondroid lesion demonstrated on the recent CT. No other suspicious site of tracer activity is identified. Focal uptake elsewhere within the right knee as well as involving the left knee, both feet, and both ankles is in a degenerative distribution. IMPRESSION: 1. Right distal femur focal increased tracer activity corresponding to the chondroid lesion on the re cent CT. This is of questionable significance given the nonaggressive features on the CT and benign c hondroid lesions can have variable activity on bone scan. Continued clinical follow-up is recommended but if the patient has pain which appears to localize to the lesion consider CT follow-up versus fur ther characterization by MRI. 2. Bilateral lower extremity osteoarthritis. Report Dictated By: Levi Del Rio MD at 09/29/2018 4:10 PM Report E-Signed By: Levi Del Rio MD at 09/29/2018 4:16 PM WSN:[id number]
== END ==
LOC: NUC 02:20
PROVIDERS: ATTEND Orthopaedic Surgery
DX: M19.91 Primary osteoarthritis, unspecified site (principal)
CPT/HCPCS: 78306; A9503